=== PATIENT | female | born 1945 | race Caucasian/White ===

== ENCOUNTER → 2020-02-01 11:41 | Outpatient (BNVA) | payer MEDICAID, SELFPAY | PROVIDERS: Visit Provider Nurse Practitioner Family | DX: D64.9 Anemia, unspecified (principal); I10 Essential (primary) hypertension; E78.2 Mixed hyperlipidemia; E55.9 Vitamin D deficiency, unspecified; R53.83 Other fatigue; Z79.899 Other long term (current) drug therapy; M54.5 Low back pain; J44.9 Chronic obstructive pulmonary disease, unspecified | CPT/HCPCS: 80053; 80061; 82306; 82607; 82728; 82746; 83036; 83540; 84443; 85025 ==

== ENCOUNTER 2022-05-28 23:33 | Emergency (ER) | payer MEDICAID, SELFPAY ==
--- NOTE | 2022-05-28 23:44 | XRR_ITS ---
PROCEDURE INFORMATION: Exam: XR Chest Exam date and time: 05/28/2022 11:55 PM Age: 77 years old Clinical indication: Shortness of breath; Prior surgery; Surgery type: Partial lobectomy. Breast aug. Patient HX: C/O SOB. History of copd. TECHNIQUE: Imaging protocol: Radiologic exam of the chest. Views: 1 view. COMPARISON: CR Chest 1 [place] [id number] 07/30/2019 3:26 PM FINDINGS: Lungs: Hyperinflation of the lungs with changes of COPD. No consolidation. Pleural spaces: Unremarkable. No pleural effusion. No pneumothorax. Heart/Mediastinum: No cardiomegaly. Bones/joints: No acute fracture. XR/XR chest 1V portable [id number] IMPRESSION: No acute findings.
[2022-05-28 23:46] VITALS: BP 144/104; PULSE 112; RESP 36; TEMP 37.3; O2SAT 95; BMI 22.2
--- NOTE | 2022-05-28 23:56 | ECG_ITS ---
[facility] Test Date: 2022-05-28 Pat Name: Florinda Bass Department: Room: Gender: Female [employer]: : 1945 Requested By: Evelio Alvarenag Order Number: [id number] Rosy MD: Elder Ha M.D. Measurements Intervals Rowan Rate: 108 P: 73 VA: 147 QRS: 19 QRSD: 76 T: 64 QT: 295 QTc: 396 Interpretive Statements SINUS TACHYCARDIA NONSPECIFIC T-WAVE ABNORMALITY Compared to ECG 07/30/2019 17:43:23 T-wave abnormality now present Sinus rhythm no longer present Electronically Signed On 05-29-2022 17:18:25 CDT by Elder Ha M.D. [id number]
[2022-05-29 00:05] VITALS: BP 148/86; PULSE 115; RESP 27; O2SAT 95
[2022-05-29 00:06] LABS: ABG PCO2 55.2 mmHg (35-45); ABG PH Result 7.41 (7.35-7.45); Arterial Blood Gas Hematocrit 38.8 % (37-47); Base Excess ABG 8.6 mmol/L (-2.0-2.0); Blood Gas Allen Test Pos; Blood Gas Sample Site Radial, right; Blood Gas Sample Type Arterial; Oxygen Device NC
--- NOTE | 2022-05-29 00:08 | W.ED.SOB ---
HPI - SOB/Dyspnea General: Chief Complaint: Shortness of Breath/Dyspnea Stated Complaint: SOB Time Seen by Provider: 05/28/22 23:37 Source: patient Mode of arrival: ambulatory Limitations: no limitations History of Present Illness: HPI Narrative: 77-year-old female with a long history of COPD she is on 3 L baseline at home states she had some increased shortness of breath tonight and cough low-grade fevers patient is able speak in full sentences denies any worsening proving factors no chest pain. Associated symptoms: Deny abdominal pain, chest pain, fever(s), nausea or vomiting Review of Systems Const: Denies: fever(s), chills, body aches or change in appetite Eyes: Denies: blurry vision or eye discomfort ENMT: Denies: throat pain or dental pain Card: Denies: chest pain Resp: Reports: dyspnea, non-productive cough and wheezing GI: Denies: abdominal pain, nausea, vomiting or diarrhea : Denies: dysuria Musc: Denies: neck pain or back pain Skin/Breast: Denies: rash Neuro: Denies: headache(s) Psych: Denies: depression Edouard/Lymph: Denies: easy bruising All/Imm: Denies: urticaria PFSH ED PFSH: Medical History Arthritis pain COPD (chronic obstructive pulmonary disease) Essential hypertension Pharyngeal disorder Status post breast implant removal Surgical History Status post breast augmentation Status post partial lobectomy of lung Social History Smoking and tobacco status: former smoker Alcohol intake: never Physical Exam Const: COMMON NORMALS: patient oriented x3 HENMT: COMMON NORMALS: normocephalic and atraumatic HEAD & SCALP: normocephalic and atraumatic Eye: COMMON NORMALS: Equal, round and reactive pupils present and EOMs intact bilaterally PUPIL: Yes Equal, round and reactive pupils present Neck/C-Spine: COMMON NORMALS: full ROM and supple Chest: COMMONS NORMALS: normal inspection of the chest and normal palpation of entire chest wall Resp: EFFORT & INSPECTION: Yes tachypneic AUSCULTATION: wheezes Cardio: COMMON NORMALS: regular rate, regular rhythm and No murmurs present (Cardio) RATE: regular rate RHYTHM: regular rhythm GI: COMMON NORMALS: Normal to inspection, nondistended, normoactive bowel sounds present, Soft to palpation, non-tender and no masses PALPATION: Yes Soft to palpation Extremity: COMMON NORMALS: normal to inspection and full ROM Neuro: COMMON NORMALS: patient oriented x3, moves all extremities and no focal motor deficits Psych: COMMON NORMALS: mental status grossly normal, Normal thought process present and cooperative THOUGHT PROCESS: Normal thought process present Skin: COMMON NORMALS: no rashes or lesions noted and no wounds GENERAL SKIN EXAM: no rashes or lesions noted Course Vital Signs: Vital signs: Vital Signs Temperature 99.2 F 05/28/22 23:46 Pulse Rate 115 H 05/29/22 00:05 Respiratory Rate 27 H 05/29/22 00:05 Blood Pressure 148/86 05/29/22 00:05 Pulse Oximetry 95 05/29/22 00:05 Oxygen Delivery Me thod 05/28/22 23:46 Oxygen Flow Rate 4 05/28/22 23:46 MDM - SOB/Dyspnea Medical Decision Making Patient presents here with COPD exacerbation x-ray shows no pneumonia lab work is normal she feels improved we will prescribe her steroid for home she is follow-up PCP return if worsening. Lab Data : 05/29/22 00:05 05/29/22 00:05 Labs/Radiology: Laboratory Results WBC 7.7 10^3/uL (4.0-10.0) 05/29/22 00:05 RBC 4.18 10^6/uL (4.1-5.3) 05/29/22 00:05 Hgb 12.4 g/dL (11.5-15.3) 05/29/22 00:05 Hct 39.0 % (37.0-47.0) 05/29/22 00:05 MCV 93.3 fl (81-99) 05/29/22 00:05 MCH 29.7 pg (28.0-34.0) 05/29/22 00:05 MCHC 31.8 g/dL (30.0-36.0) 05/29/22 00:05 RDW 12.6 % (12.1-15.1) 05/29/22 00:05 Plt Count 145 10^3/cmm (130-400) 05/29/22 00:05 MPV 12.1 fL (7.4-10.4) H 05/29/22 00:05 Neut % (Auto) 76.1 % 05/29/22 00:05 Lymph % (Auto) 5.5 % 05/29/22 00:05 Zapata % (Auto) 17.1 % 05/29/22 00:05 Eos % (Auto) 0.3 % 05/29/22 00:05 Baso % (Auto) 0.3 % 05/29/22 00:05 Neut # (Auto) 5.86 10^3/uL (1.8-7.7) 05/29/22 00:05 Lymph # (Auto) 0.4 10^3/uL (0.8-4.8) L 05/29/22 00:05 Zapata # (Auto) 1.3 10^3/uL (0.2-0.9) H 05/29/22 00:05 Eos # (Auto) 0.0 10^3/uL (0.0-0.8) 05/29/22 00:05 Baso # (Auto) 0.0 10^3/uL (0.0-0.1) 05/29/22 00:05 Nucleated RBC % (auto) 0 % 05/29/22 00:05 Nucleated RBCs # 0.0 /100WBC 05/29/22 00:05 Specimen Type Arterial 05/28/22 00:00 Sample Site Radial, right 05/28/22 00:00 ABG pH 7.41 (7.35-7.45) 05/28/22 00:00 ABG pCO2 55.2 mmHg (35-45) H 05/28/22 00:00 ABG pO2 136.0 mmHg (80.0-100.0) H 05/28/22 00:00 ABG HCO3 35.0 mmol/L (22-26) H 05/28/22 00:00 ABG Base Excess 8.6 mmol/L (-2.0-2.0) H 05/28/22 00:00 Rodriguez Test Pos 05/28/22 00:00 Hematocrit 38.8 % (37-47) 05/28/22 00:00 O2 Delivery Device Nc 05/28/22 00:00 O2 Liters/Min 3.0 % 05/28/22 00:00 Motor Room Controller DUNG Dunn 05/28/22 00:00 Sodium 139 mmol/L (136-145) 05/29/22 00:05 Potassium 4.0 mmol/L (3.5-5.1) 05/29/22 00:05 Chloride 96 mmol/L (98-107) L 05/29/22 00:05 Carbon Dioxide 34 mmol/L (22-29) H 05/29/22 00:05 Anion Gap 13.0 (5-19) 05/29/22 00:05 BUN 18 mg/dL (8-23) 05/29/22 00:05 Creatinine 0.6 mg/dL (0.5-0.9) 05/29/22 00:05 GFR Calculation Not Reportable 05/29/22 00:05 Glucose 107 mg/dL (65-115) 05/29/22 00:05 Calculated Osmolality 290 mOsm/kg (285-295) 05/29/22 00:05 Calcium 9.4 mg/dL (8.5-10.5) 05/29/22 00:05 Total Bilirubin 0.3 mg/dL (0.15-1.2) 05/29/22 00:05 AST 17 U/L (0-32) 05/29/22 00:05 ALT 10 U/L (0-33) 05/29/22 00:05 Alkaline Phosphatase 53 U/L (35-105) 05/29/22 00:05 NT-Pro-B Natriuret Pep 774 pg/mL (0-450) H 05/29/22 00:05 Total Protein 7.7 g/dL (6.6-8.7) 05/29/22 00:05 Albumin 4.1 g/dL (3.5-5.2) 05/29/22 00:05 Globulin 3.6 g/dL (1.3-4.6) 05/29/22 00:05 SARS-CoV-2 Ag (Rapid) Negative (Negative) 05/29/22 00:05 EKG Data EKG 1: I personally reviewed and interpreted this EKG as follows: EKG Interpretation Date: 05/28/22 EKG interpretation time: 23:56 Interpretation: sinus tach hr [address] or t wave abnormalities qrs 76 qtc 358 Discharge Plan Discharge Patient Disposition: Home Clinical Impression: Acute exacerbation of chronic obstructive airways disease Condition: Stable Prescriptions: New prednisone 50 mg tablet 50 mg PO DAILY Qty: 5 0RF No Action (DME) nebulizer accessories [facility] [place] See Rx Instructions .ROUTE .MEDSUPPLY Qty: 1 0RF Rx Instructions: As directed daily PRN (DME) nebulizers Mis See Rx Instructions .ROUTE .MEDSUPPLY Qty: 1 0RF Rx Instructions: As directed cholecalciferol (vitamin D3) 1,250 mcg (50,000 unit) capsule 50,000 unit PO .weekly 30 Days Qty: 4 4RF amlodipine 2.5 mg tablet See Rx Instructions .ROUTE .COMPLEX 90 Days Qty: 90 3RF Dose Instruction: TAKE ONE TABLET BY MOUTH DAILY Rx Instructions: TAKE ONE TABLET BY MOUTH DAILY aspirin 81 mg tablet,delayed release (DR/EC) See Rx Instructions .ROUTE .COMPLEX 90 Days Qty: 90 3RF Dose Instruction: TAKE ONE TABLET BY MOUTH DAILY Rx Instructions: TAKE ONE TABLET BY MOUTH DAILY albuterol sulfate [ProAir HFA] 90 mcg/actuation HFA aerosol inhaler See Rx Instructions .ROUTE .COMPLEX 30 Days Qty: 8.5 11RF Dose Instruction: USE 2 INHALATIONS BY MOUTH 6 TIMES A DAY NEEDED FOR SHORTNESS OF BREATH OR WHEEZING Rx Instructions: USE 2 INHALATIONS BY MOUTH 6 TIMES A DAY NEEDED FOR SHORTNESS OF BREATH OR WHEEZING Pt must make an appointment for additional refills budesonide-formoterol [Symbicort] 160-4.5 mcg/actuation HFA aerosol inhaler 2 puff inhalation BID Qty: 10.2 2RF Vascepa 1 gram capsule 2 gm PO BID 30 Days Qty: 60 2RF albuterol sulfate 0.63 mg/3 mL solution for nebulization See Rx Instructions .ROUTE .COMPLEX Qty: 75 5RF Dose Instruction: USE 1 VIAL IN NEBULIZER EVERY 6 HOURS NEEDED FOR SHORTNESS OF BREATH OR WHEEZING Rx Instructions: USE 1 VIAL IN NEBULIZER EVERY 6 HOURS NEEDED FOR SHORTNESS OF BREATH OR WHEEZING gabapentin 300 mg capsule See Rx Instructions .ROUTE .COMPLEX Qty: 60 5RF Dose Instruction: TAKE ONE CAPSULE BY MOUTH TWICE DAILY FOR 30 DAYS (NO FURTHER REFILLS UNTIL PATIENT HAS AN APPOINTMENT) Rx Instructions: TAKE ONE CAPSULE BY MOUTH TWICE DAILY FOR 30 DAYS (NO FURTHER REFILLS UNTIL PATIENT HAS AN APPOINTMENT) doxepin 10 mg capsule See Rx Instructions .ROUTE .COMPLEX Qty: 30 2RF Dose Instruction: TAKE 1 CAPSULE BY MOUTH DAILY Rx Instructions: TAKE 1 CAPSULE BY MOUTH DAILY Discharge Orders: Discharge ED (Routine); Ordered 05/29/22 Ordered By: Evelio Alvarenga Discharge Diet: Advance as tolerated Discharge Activity: Resume usual activity Patient Instructions: COPD (Chronic Obstructive Pulmonary Disease) (ED) Coding Level of Care Code ED Maintenance Instructor for Saida Fwiraj Exam Comprehensive
[2022-05-29] MEDS: acetaminophen 325 mg Tablet 650 MG PO (00:11)
[2022-05-29 00:16] LABS: Basophils % 0.3 %; Eosinophils % 0.3 %; Hemoglobin 12.4 g/dL (11.5-15.3); Lymphocytes # 0.4 10^3/uL (0.8-4.8); Lymphocytes % 5.5 %; Mean Corpuscular HGB Conc 31.8 g/dL (30.0-36.0); Mean Corpuscular Hemoglobin 29.7 pg (28.0-34.0); Mean Corpuscular Volume 93.3 fl (81-99); Mean Platelet Volume 12.1 fL (7.4-10.4); Monocytes # 1.3 10^3/uL (0.2-0.9); Monocytes % 17.1 %; Neutrophils # 5.86 10^3/uL (1.8-7.7); Neutrophils % 76.1 %; Nucleated Red Blood Cells % 0 %; Platelet Count 145 10^3/cmm (130-400); Red Blood Count 4.18 10^6/uL (4.1-5.3); Red Cell Distribution Width 12.6 % (12.1-15.1); White Blood Count 7.7 10^3/uL (4.0-10.0)
[2022-05-29 00:35] LABS: SARS Covid-2 Antigen Negative (Negative)
[2022-05-29 00:53] LABS: Alanine Aminotransferase 10 U/L (0-33); Albumin Level 4.1 g/dL (3.5-5.2); Alkaline Phosphatase 53 U/L (35-105); Aspartate Amino Transferase 17 U/L (0-32); Blood Urea Nitrogen 18 mg/dL (8-23); Calcium 9.4 mg/dL (8.5-10.5); Carbon Dioxide 34 mmol/L (22-29); Chloride 96 mmol/L (98-107); Globulin 3.6 g/dL (1.3-4.6); Glucose 107 mg/dL (65-115); NT Pro B Type Natriuretic Pept 774 pg/mL (0-450); Osmolality Calculated 290 mOsm/kg (285-295); Sodium 139 mmol/L (136-145); Total Bilirubin 0.3 mg/dL (0.15-1.2); Total Protein 7.7 g/dL (6.6-8.7)
[2022-05-29 01:35] VITALS: BP 146/74; PULSE 106; RESP 24; O2SAT 94
== END 2022-05-29 01:25 | disposition home or self-care (01) ==
PROVIDERS: Emergency Provider Emergency Medicine
DX: J44.1 Chronic obstructive pulmonary disease with (acute) exacerbation (principal); Z79.82 Long term (current) use of aspirin; I10 Essential (primary) hypertension; Z87.891 Personal history of nicotine dependence; Z90.2 Acquired absence of lung [part of]; Z20.822 Contact with and (suspected) exposure to COVID-19
CPT/HCPCS: 36600; 71045; 80053; 82803; 83880; 85025; 87426; 93005; 96374; 99285; J2930